=== PATIENT | female | born 1965 | race Caucasian/White ===

== ENCOUNTER 2016-06-10 15:20 | Emergency (ER) | payer OTHER ==
[~2016-06-10] VITALS: Ht 160 cm; Wt 108.9 kg
--- NOTE | 2016-06-10 15:35 | ED DYSPNEA/ASTHMA COMPLAINT ---
History of Present Illness General Chief Complaint: Dyspnea (COPD, CHF, Other) Stated Complaint: PT SIB BY SCHOOL NURSE FOR SOB Source: patient Exam Limitations: no limitations Vital Signs & Intake/Output Vital Signs & Intake/Output Vital Signs Date Time Temp Pulse Resp B/P B/P Pulse O2 O2 Flow FiO2 Mean Ox Delivery Rate 06/10 1612 98 Room Air 06/10 1532 97.4 84 16 129/85 98 Room Air Allergies Coded Allergies: naproxen (U 06/10/16) Uncoded Allergies: Allergy Other N Food Allergies N Med Allergies N[place]ARSON/RASH Triage Note: TRIAGE: PT WITH TWO EPISODES OF DIFFICULTY CATCHING BREATH TODAY, STATING IT FEELS LIKE "WHEN YOU GO DOWN A ROLLER COASTER." DENIES CHEST PAIN OR PALPITATIONS. REPORTS DIZZINESS AT TIMES, STABLE STEADY GAIT. DENIES HEADACHE OR VISUAL CHANGES. +N/-V/-D. ACCUCHECK 138 Triage Nurses Notes Reviewed? yes Onset: Abrupt Duration: waxing and waning Timing: multiple episodes today Severity: moderate, severe Activities at Onset: none Associated Symptoms: nausea, dizziness HPI: This is a 51-year-old female with history of diabetes, currently being worked up for an inner ear issue presents from school for chief complaint of episodes of difficulty breathing associted with a dizzy feeling like going down a roller coaster. No headache, blurred vision, chest pain or shortness of breath. Positive nausea, no vomiting or diarreha. She admits to feeling a little bit anxious. Past History Travel History Traveled to [place] past 21 day No Medical History Any Pertinent Medical History? 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 Yes Review of Systems Review of Systems Constitutional: Denies: chills, fever. EENTM: Denies: double vision. Respiratory: Denies: cough, short of breath. Cardiovascular: Denies: chest pain, palpitations, peripheral edema, syncope. GI: Reports: nausea. Denies: abdominal pain, diarrhea, vomiting. Genitourinary: Denies: discharge, dysuria. Musculoskeletal: Reports: no symptoms. Skin: Reports: no symptoms. Neurological/Psychological: Reports: no symptoms. Hematologic/Endocrine: Denies: bruising, bleeding, polyuria, polydipsia. Immunologic/Allergic: Denies: splenectomy. All Other Systems: Reviewed and Negative Physical Exam Physical Exam General Appearance: well developed/nourished, alert, awake, anxious, moderate distress Head: atraumatic, normal appearance Eyes: Bilateral: normal appearance, PERRL, EOMI. Ears, Nose, Throat: normal pharynx, hearing grossly normal Neck: normal inspection, supple, full range of motion Respiratory: normal breath sounds, chest non-tender, no respiratory distress Cardiovascular: regular rate/rhythm Peripheral Pulses: 2+ radial (R), 2+ radial (L) Gastrointestinal: normal bowel sounds, soft, non-tender Neurologic/Psych: no motor/sensory deficits, awake, alert, oriented x 3 Skin: intact, normal color, warm/dry Core Measures ACS in differential dx? Yes ASA ordered for poss ACS? No-ACS ruled out Severe Sepsis Present: No Septic Shock Present: No Progress Differential Diagnosis: AMI, bronchitis, pulmonary embolism, ANXIETY Plan of Care: Orders Procedure Date/time Status Consistent Carbohydrate 1 06/11 B Active TROPONIN LEVEL 06/10 1900 Active EKG 06/10 1900 Active Add-on Test (ER Only) 06/10 1604 Active Add-on Test (ER Only) 06/10 1602 Active THYROID STIMULATING HORMONE 06/10 1535 Complete PARTIAL THROMBOPLASTIN TIME 06/10 1535 Complete PROTHROMBIN TIME 06/10 1535 Complete FREE T4 06/10 1535 Complete D-DIMER 06/10 1535 Complete TROPONIN LEVEL 06/10 1523 Complete COMPREHENSIVE METABOLIC PANEL 06/10 1523 Complete CBC WITHOUT DIFFERENTIAL 06/10 1523 Complete EKG 06/10 1522 Active Laboratory Tests 06/10/16 1928: Troponin I Pending 06/10/16 1535: Anion Gap 17 H, Estimated GFR > 60, BUN/Creatinine Ratio 21.4, Glucose 127 H, Calcium 9.6, Total Bilirubin 0.6, AST 19, ALT 45, Alkaline Phosphatase 108, Troponin I < 0.01, Total Protein 7.4, Albumin 4.7, Globulin 2.7, Albumin/ Globulin Ratio 1.7, TSH 1.980, Free T4 1.07, PT 9.9, INR 0.94, APTT 30, D-Dimer < 200, CBC w Diff NO MAN DIFF REQ, RBC 5.02, MCV 88.8, MCH 29.5, RDW 12.9, MPV 7.3 L, Gran % 69.1, Lymphocytes % 25.8, Monocytes % 2.9, Eosinophils % 1.5, Basophils % 0.7, Absolute Granulocytes 7.6 H, Absolute Lymphocytes 2.8, Absolute Monocytes 0.3, Absolute Eosinophils 0.2, Absolute Basophils 0.1, PUBS MCHC 33.3 5:04 PM TROPONIN/DIMER NEGATIVE. PATIENT WILL STAY FOR 2ND SET AT 1900. DIABETIC DIET ORDERED. 8:07 PM NO FURTHER EPISODES IN ED. REPREAT EKG NORMAL. PATIENT ANXIOUS TO GO HOME AT THIS TIME. WILL DISCHARGE WITH CARDIOLOGY FOLLOW UP. (HUMA BAINS,ALIZA) Diagnostic Imaging: Viewed by Me: Radiology Read. Discussed w/RAD: Radiology Read. CXR Impression: PATIENT: PJ MTZ PRESENT AGE: 51 PATIENT ACCOUNT NO: [id number] : 67 LOCATION: [facility] ORDERING PHYSICIAN: ALIZA FINN MD SERVICE DATE: 06/10/16 EXAM TYPE: RAD - XRY -CHEST XRAY, PA AND LATERAL EXAMINATION: XR CHEST CLINICAL INFORMATION: Shortness of breath. COMPARISON: None TECHNIQUE: 2 views of the chest were obtained. FINDINGS: Cardiac silhouette is normal in size. Lungs are well aerated. No focal consolidation. No pleural effusion. Mild degenerative changes of the spine. IMPRESSION: No acute cardiopulmonary pathology. DICTATED BY: RAMOS PALOMO MD DATE/TIME DICTATED:06/10/161604 INDUCTION FURNACE OPERATOR:ROCIO DATE/ TIME TRANSCRIBED:06/10/161604 CONFIDENTIAL, DO NOT COPY WITHOUT APPROPRIATE AUTHORIZATION. <Electronically signed in Other Vendor System> SIGNED BY: RAMOS PALOMO MD 06/10/161624 Initial ED EKG: NSR Repeat EKG: unchanged (NSR) Rhythm Strip: normal sinus rhythm Departure Departure Disposition: HOME OR SELF CARE Condition: Stable Clinical Impression Primary Impression: Dyspnea Secondary Impressions: Anxiety Referrals: MARK MARES,RAMANA STEPHENS MD PhD,[place] [facility] Additional Instructions: FOLLOW UP WITH YOUR DOCTOR AND WITH THE HAM PUMPER LISTED RETURN TO THE ER FOR ANY CHANGING OR WORSENING SYMPTOMS Departure Forms: Customer Survey General Discharge Information Critical Care Note Critical Care Note Critical Care Time: non-applicable
[2016-06-10 15:42] LABS: ABSOLUTE BASOPHIL COUNT 0.1 /CUMM (0.0-0.2); ABSOLUTE EOSINOPHIL COUNT 0.2 /CUMM (0.0-0.7); ABSOLUTE GRANULOCYTE CT 7.6 /CUMM (1.4-6.5); ABSOLUTE LYMPH COUNT 2.8 /CUMM (1.2-3.4); ABSOLUTE MONOCYTE COUNT 0.3 /CUMM (0.10-0.60); BASOPHIL % 0.7 % (0.0-2.0); EOSINOPHIL % 1.5 % (0-5); GRANULOCYTE % 69.1 % (42.2-75.2); HEMATOCRIT 44.5 % (37-47); MEAN CORPUSCULAR HGB 29.5 PG (27.0-31.0); MEAN CORPUSCULAR HGB CONC 33.3 G/DL (33.0-37.0); MEAN CORPUSCULAR VOLUME 88.8 FL (81.0-99.0); MEAN PLATELET VOLUME 7.3 FL (7.4-10.4); PLATELET COUNT 322 /CUMM (130-400); RBC DISTRIBUTION WIDTH 12.9 % (11.5-14.5); RED BLOOD CELL CT 5.02 /CUMM (4.20-5.40)
--- NOTE | 2016-06-10 16:25 | RADIOLOGY REPORT ---
EXAMINATION: XR CHEST CLINICAL INFORMATION: Shortness of breath. COMPARISON: None TECHNIQUE: 2 views of the chest were obtained. FINDINGS: Cardiac silhouette is normal in size. Lungs are well aerated. No focal consolidation. No pleural effusion. Mild degenerative changes of the spine. IMPRESSION: No acute cardiopulmonary pathology.
[2016-06-10 16:41] LABS: PT 9.9 SEC (9.4-12.5); PTT 30 SEC (25-37)
[2016-06-10 20:22] VITALS: BP 143/81
== END 2016-06-10 20:30 ==
LOC: ERH 15:20
PROVIDERS: Emergency Medicine
DX: R06.00 Dyspnea, unspecified (principal); F41.9 Anxiety disorder, unspecified
CPT/HCPCS: 93005; 93010; J3101